=== PATIENT | female | born 1985 | race African-American/Black ===

== ENCOUNTER 2024-03-14 13:41 | Inpatient (IN) | payer OTHER ==
[2024-03-14 14:00] VITALS: BMI 27.9
[2024-03-14] MEDS ORDERED: NICOTINE POLACRILEX 2 MG GUM BUC PRN (15:15)
[2024-03-14] MEDS ORDERED: hydrOXYzine PAMOATE 25 MG CAPSULE (FP) PO PRN (15:15)
[2024-03-14] MEDS ORDERED: DICYCLOMINE HCL 10 MG CAPSULE PO PRN (15:15)
[2024-03-14] MEDS ORDERED: MAGNESIUM HYDROX 2400MG/30ML ORAL SUSPENSION 30 ML CUP PO PRN (15:15)
[2024-03-14] MEDS ORDERED: BISMUTH SUBSALICYLATE 524 MG/30 ML PO PRN (15:15)
[2024-03-14] MEDS ORDERED: LOPERAMIDE HCL 2 MG CAPSULE PO PRN (15:15)
[2024-03-14] MEDS ORDERED: IBUPROFEN 400 MG TABLET (FP) PO PRN (15:15)
[2024-03-14] MEDS ORDERED: BENZOCAINE/MENTHOL (CHLORASEPTIC ) LOZENGE MM PRN (15:15)
[2024-03-14] MEDS ORDERED: MAG HYDROX/AL HYDROX/SIMETH 30 ML UNIT-DOSE CUP PO PRN (15:15)
[2024-03-14] MEDS ORDERED: ONDANSETRON *ODT* 4 MG TABLET SL PRN (15:15)
[2024-03-14] MEDS ORDERED: BENZONATATE 200 MG CAPSULE PO PRN (15:15)
[2024-03-14] MEDS ORDERED: METHOCARBAMOL 500 MG TABLET PO PRN (15:15)
[2024-03-14] MEDS ORDERED: POLYETHYLENE GLYCOL (HEALTHYLAX) 3350 17 GM PACKET PO PRN (15:15)
[2024-03-14] MEDS ORDERED: guaiFENesin 600 MG TABLET.ER (FP) PO PRN (15:15)
[2024-03-14] MEDS ORDERED: ACETAMINOPHEN 325 MG TABLET (FP) PO PRN (15:15)
[2024-03-14] MEDS ORDERED: IBUPROFEN 600 MG TABLET (FP) PO PRN (15:15)
[2024-03-14] MEDS ORDERED: NICOTINE 7 MG/24 HOURS TOPICAL PATCH TD PRN (15:15)
[2024-03-14] MEDS: diazePAM 5 MG TABLET PO SCH (17:52)
[2024-03-14] MEDS: THIAMINE 100 MG TABLET PO SCH (22:18)
[2024-03-14] MEDS: MELATONIN 5 MG TABLETS PO SCH (22:20)
[2024-03-15] MEDS: diazePAM 5 MG TABLET PO SCH (05:46)
[2024-03-15] MEDS: PRENATAL VITAMINS W/ FOLIC ACID TABLET (FP) PO SCH (09:44)
[2024-03-16] MEDS: diazePAM 5 MG TABLET PO SCH (05:51)
[2024-03-16] MEDS: diazePAM 5 MG TABLET PO PRN (22:27)
[2024-03-17] MEDS: diazePAM 5 MG TABLET PO ONE (06:13)
[2024-03-17 06:36] VITALS: BP 106/63; PULSE 72; RESP 18; TEMP 96.1
== END 2024-03-17 09:45 | disposition home or self-care (01) | DRG 897 ==
LOC: YASAS 13:41 → Y6N 15:37 → Y3N 16:04
PROVIDERS: ADMIT Allergy & Immunology; ATTEND Surgery
PROC: HZ2ZZZZ Detoxification Services for Substance Abuse Treatment (ICD-10-PCS; principal; 2024-03-14)
DX: F10.230 Alcohol dependence with withdrawal, uncomplicated (principal); F17.213 Nicotine dependence, cigarettes, with withdrawal; F32.A Depression, unspecified; I10 Essential (primary) hypertension; E11.9 Type 2 diabetes mellitus without complications; E78.5 Hyperlipidemia, unspecified; I25.10 Atherosclerotic heart disease of native coronary artery without angina pectoris; K21.9 Gastro-esophageal reflux disease without esophagitis; Z21 Asymptomatic human immunodeficiency virus [HIV] infection status; B18.2 Chronic viral hepatitis C
CPT/HCPCS: 80305; 80307; 81025; 93005; 93010